=== PATIENT | female | born 1995 | race Caucasian/White ===

== ENCOUNTER 2017-02-18 08:28 | Emergency (ER) | payer SELFPAY ==
--- NOTE | 2017-02-18 08:39 | UC ---
Shoulder Pain HPI - HPI Summary HPI Summary: States she was lifting boxes overhead at work 4 days ago and started having left shoulder pain. She cannot lift her left arm since then. Denies numbness/ tingling, pain 7-10/20. 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 LMD 02-14-17 on BCP. - History of Current Complaint Stated Complaint: SHOULDER INJURY Hx Last Menstrual Period: Currently menstruating - Allergies/Home Medications Allergies/Adverse Reactions: Allergies Allergy/AdvReac Type Severity Reaction Status Date / Time No Known Allergies Allergy Verified 02/18/17 08:35 Home Medications: Home Medications Copper (Iud) 02/18/17 [History] PMH/Surg Hx/FS Hx/Imm Hx Previously Healthy: Yes Psychological History: Other - panic attacks Other Psychological History: panic attacks - Surgical History Surgical History: None - Social History Alcohol Use: None Substance Use Type: None Smoking Status (MU): Never Smoked Tobacco - Immunization History Most Recent Influenza Vaccination: Flu Mist Fall 2012 Most Recent Tetanus Shot: within 10 years Review of Systems Constitutional: Negative Musculoskeletal: Arthralgia, Decreased ROM Psychological: Anxious All Other Systems Reviewed And Are Negative: Yes Physical Exam Triage Information Reviewed: Yes Vital Signs Reviewed: Yes Musculoskeletal: Positive: Strength Limited @ - left UE due to pain, ROM Limited @ - elevation of left shoulder, Vega positive, empty can test positive Shoulder Course/Dx - Course Course Of Treatment: pain medication provided, follow up PCP - Differential Dx/Diagnosis Provider Diagnoses: Left shoulder pain possible RCS. Elevated BP reading Discharge - Discharge Plan Condition: Stable Disposition: HOME Patient Education Materials: Shoulder Sprain (ED) Referrals: Joseph Chery MD [Primary Care Provider] -
[2017-02-18 08:40] VITALS: BP 144/83
[2017-02-18] MEDS ORDERED: Ibuprofen TAB* 400 MG PO ONE (08:57)
--- NOTE | 2017-02-18 09:25 | RAD ---
Indication: LEFT shoulder injury 4 days ago. Lifting injury. Pain. Comparison: No relevant prior exams available on the [facility] for comparison. Technique: Internal rotation AP, external rotation Grashey, scapular Y, axillary views LEFT shoulder Report: Normal acromioclavicular and glenohumeral joint alignment. Negative for fracture. Unremarkable soft tissue contours. IMPRESSION: Negative radiographic exam of the LEFT shoulder.
== END 2017-02-18 10:07 | disposition home or self-care (01) ==
LOC: UCEAST 08:28
DX: M25.512 Pain in left shoulder (principal); R03.0 Elevated blood-pressure reading, without diagnosis of hypertension
CPT/HCPCS: 99212; A9270-GY; G0463

== ENCOUNTER 2019-04-28 16:25 | Emergency (ER) | payer BC, MEDICAID ==
[2019-04-28 16:46] VITALS: BP 129/89
--- NOTE | 2019-04-28 17:19 | UC ---
Dental HPI - HPI Summary HPI Summary: 24-year-old female presents with complaints of left upper dental pain for the past 2 days. Today started noticing area of swelling at the base of the tooth. Reports she was seen at [facility] urgent care for cellulitis of her lower leg after she accidentally cut the leg and was started on cephalexin which she is still currently taking. Denies fever, chills, dental drainage, or trismus. - History of Current Complaint Chief Complaint: UCDentalProblem Stated Complaint: DENTAL Time Seen by Provider: 04/28/19 16:51 Hx Obtained From: Patient Hx Last Menstrual Period: one week ago Pain Intensity: 3 Dental: 1 - Erythema, tenderness, induration, and fluctuance without drainage - Allergies/Home Medications Allergies/Adverse Reactions: Allergies Allergy/AdvReac Type Severity Reaction Status Date / Time No Known Allergies Allergy Verified 04/28/19 16:49 PMH/Surg Hx/FS Hx/Imm Hx Previously Healthy: Yes - Surgical History Surgical History: None - Family History Known Family History: Positive: Non-Contributory - Social History Occupation: Employed Full-time Lives: With Family Alcohol Use: None Substance Use Type: None Smoking Status (MU): Never Smoked Tobacco - Immunization History Most Recent Influenza Vaccination: Flu Mist Fall 2012 Most Recent Tetanus Shot: within 10 years Review of Systems All Other Systems Reviewed And Are Negative: Yes Constitutional: Negative: Fever, Chills ENT: Positive: Dental Pain - See HPI. Negative: Sore Throat, Ear Ache, Nasal Discharge, Sinus Congestion, Sinus Pain/Tenderness Respiratory: Positive: Negative Cardiovascular: Positive: Negative Gastrointestinal: Positive: Negative Genitourinary: Positive: Negative Musculoskeletal: Positive: Negative Neurological/Mental Status: Positive: Negative Is Patient Immunocompromised?: No Physical Exam - Summary Physical Exam Summary: GENERAL APPEARANCE: Well developed, well nourished, alert and cooperative, and appears to be in no acute distress. EYES: Conjunctiva clear. No drainage. EARS: External auditory canals and tympanic membranes clear, hearing grossly intact. NOSE: No nasal discharge. MOUTH/THROAT: Pharynx normal. No tonsilar inflammation, swelling, exudate, or lesions. Uvula midline. Erythema, tenderness, induration, and fluctuance without drainage at the base of the left upper 1st bicuspid (#13). No trismus. NECK: Neck supple, non-tender without lymphadenopathy. CARDIAC: Normal S1 and S2. No S3, S4 or murmurs. Rhythm is regular. There is no peripheral edema, cyanosis or pallor. Extremities are warm and well perfused. Capillary refill is less than 2 seconds. Peripheral pulses intact. LUNGS: Clear to auscultation without rales, rhonchi, wheezing or diminished breath sounds. ABDOMEN: Positive bowel sounds. Soft, nondistended, nontender. No guarding or rebound. No masses or hepatosplenomegally. MUSKULOSKELETAL: ROM intact to all extremities. No joint erythema or tenderness. Normal muscular development. Normal gait. SKIN: Skin normal color, texture and turgor with no lesions or eruptions. Triage Information Reviewed: Yes Vital Signs: Initial Vital Signs Temp 98.2 F 04/28/19 16:44 Pulse 88 04/28/19 16:44 Resp 18 04/28/19 16:44 BP 129/89 04/28/19 16:44 Pulse Ox 100 04/28/19 16:44 Vital Signs Reviewed: Yes Dental Complaint Course/Dx - Course Course Of Treatment: 24-year-old female presents with complaints of left upper dental pain for the past 2 days. Today started noticing area of swelling at the base of the tooth. Reports she was seen at [facility] urgent care for cellulitis of her lower leg after she accidentally cut the leg and was started on cephalexin which she is still currently taking. Denies fever, chills, dental drainage, or trismus. Afebrile. Vital signs stable. Patient had erythema, tenderness, induration, and fluctuance without drainage at the base of the left upper 1st bicuspid (#13) , no trismus, and otherwise unremarkable exam. Discussed with the patient that her symptoms are consistent with a dental abscess. We'll have the patient stop her cephalexin and start on Augmentin 875 mg twice a day 10 days to provide better coverage for the dental abscess. She is to make an appointment with her dentist at the next available. Anticipatory guidance and warning symptoms were reviewed with the patient. Verbalizes understanding and agrees with plan of care. - Differential Dx/Diagnosis Differential Diagnosis/Dx: Dental Abscess, Dental Caries, Fractured Tooth, Gingivitis, Odontogenic Pain, Peridontic Disease Provider Diagnosis: Dental abscess Discharge ED - Sign-Out/Discharge Documenting (check all that apply): Patient Departure All imaging exams completed and their final reports reviewed: No Studies - Discharge Plan Condition: Stable Disposition: HOME Prescriptions: Amoxicillin/Clavulanate TAB* [Augmentin TAB 875*] 875 mg PO BID 10 Days #20 tab Patient Education Materials: Dental Abscess (ED) Referrals: No Primary Care Phys,NOPCP [Primary Care Provider] - Additional Instructions: Stop taking the cephalexin. Start Augmentin 875 mg 1 tab twice a day for 10 days. Take acetaminophen (Tylenol) or ibuprofen (Advil, Motrin) according to directions as needed for pain. Be sure to rinse your mouth out with a warm salt water solution after every time you eat to remove any debris. Make an appointment with your dentist at next available appointment. Seek immediate medical attention in the emergency room if you develop fever greater than 100.5 F, you are unable to open of close your mouth, are unable to swallow, have difficulty breathing, or any worsening of symptoms. - Billing Disposition and Condition Condition: STABLE Disposition: Home
== END 2019-04-28 17:45 | disposition home or self-care (01) ==
LOC: UCEAST 16:25
DX: K04.7 Periapical abscess without sinus (principal)
CPT/HCPCS: 99212; G0463

== ENCOUNTER 2021-06-01 17:14 | Inpatient (IN) ==
[2021-06-01] MEDS ORDERED: Haloperidol 5 mg/ml SDV IV/IM 5 MG/ML AMP IM ONE (18:14)
[2021-06-01] MEDS ORDERED: Lorazepam PYXIS KEY PRN (18:15)
[2021-06-01] MEDS ORDERED: LORazepam 2 mg VIAL 1 ml IM ONE (18:15)
[2021-06-01] MEDS ORDERED: diPHENhydraMINE IV 50 MG/ML 1 ml VIAL (BENADRYL) IM ONE (18:15)
[2021-06-01 20:20] LABS: Urine Benzodiazepine Screen None Detected (None Detect); Urine Cannabinoids Screen Presumptive Positive (None Detect); Urine Opiates Screen None Detected (None Detect)
[2021-06-01] MEDS ORDERED: Al Hydrox/Mg Hydrox/Simet LIQ 30 ML UDC PO PRN (23:49)
[2021-06-02 07:46] LABS: HDL Cholesterol 58.9 mg/dL
[2021-06-02] MEDS: Multivitamins/Minerals TAB PO SCH (08:54)
[2021-06-03] MEDS: Multivitamins/Minerals TAB PO SCH (09:42)
[2021-06-03] MEDS ORDERED: Albuterol HFA INHALER 8 gm MDI INH PRN (10:08)
[2021-06-04] MEDS: Multivitamins/Minerals TAB PO SCH (09:04)
[2021-06-04] MEDS ORDERED: OLANzapine 5 mg TAB*ODT PO ONE (12:58)
[2021-06-04] MEDS ORDERED: OLANzapine 5 mg TAB*ODT PO PRN (15:39)
[2021-06-05] MEDS: Multivitamins/Minerals TAB PO SCH (10:45)
[2021-06-06] MEDS: Multivitamins/Minerals TAB PO SCH (08:36)
[2021-06-07] MEDS: Multivitamins/Minerals TAB PO SCH (11:19)
[2021-06-08 07:32] VITALS: BP 125/82
[2021-06-08] MEDS: Multivitamins/Minerals TAB PO SCH (09:26)
== END 2021-06-08 15:50 | disposition home or self-care (01) | DRG 751 ==
LOC: ED 17:14 → EDHOLD 23:00 → BSU 06-02 00:58
PROVIDERS: ADMIT Psychiatry & Neurology Psychiatry; ATTEND Psychiatry & Neurology Psychiatry